=== PATIENT | male | born 1950 | race Caucasian/White ===

== ENCOUNTER → 2016-02-18 | Outpatient (CLI) | payer OTHER ==
[2016-02-18 18:11] LABS: MEAN CORPUSCULAR HEMOGLOBIN 32.3 pg (27.0-33.0); MEAN CORPUSCULAR HGB CONC 34.6 g/dl (32.0-36.5); MEAN CORPUSCULAR VOLUME 93.2 fl (80.0-96.0); WHITE BLOOD COUNT 8.2 K/mm3 (4.0-10.0)
[2016-02-18 18:20] LABS: ANION GAP 10 MEQ/L (8-16); BLOOD UREA NITROGEN 21 MG/DL (7-18); CARBON DIOXIDE LEVEL 28 MEQ/L (21-32); CHLORIDE LEVEL 98 MEQ/L (98-107); GLOMERULAR FILTRATION RATE 54.3 (>49); GLUCOSE, FASTING 328 MG/DL (80-110); POTASSIUM SERUM 4.2 MEQ/L (3.5-5.1); SODIUM LEVEL 136 MEQ/L (136-145)
== END | disposition home or self-care (01) ==
LOC: M LAB 16:23
PROVIDERS: ATTEND Internal Medicine Cardiovascular Disease
DX: R06.02 Shortness of breath (principal); R94.31 Abnormal electrocardiogram [ECG] [EKG]

== ENCOUNTER → 2021-09-10 | Outpatient (REF) | payer MEDICARE, BC, OTHER | LOC: M SMT 09:56 | PROVIDERS: ATTEND Urology | DX: R97.20 Elevated prostate specific antigen [PSA] (principal) ==

== ENCOUNTER 2024-04-26 13:19 | Day surgery (SDC) | payer MEDICARE, BC ==
[~2024-04-26] VITALS: Ht 180.3 cm; Wt 112.9 kg
[~2024-04-26 13:19] MED LIST: ADVA1AER8 INH; AMLO1TAB25 PO; ELIQ5TAB PO; FINA5TAB2 PO; LISI30TA4 PO; METF500T13 PO; ROSU10TA61 PO; SEMA2PEN; SERT25TA21 PO; TOPR100T PO; ZOLO25TA PO
[2024-04-26] MEDS ORDERED: GLUCAGON INJ 1MG VIAL SC PRN (14:10)
[2024-04-26] MEDS ORDERED: DEXTROSE 50% 50ML SYRINGE IV PRN (14:10)
[2024-04-26] MEDS ORDERED: GLUCOSE 4 GM CHEW PO PRN (14:10)
[2024-04-26] MEDS ORDERED: LR 1,000 ML IV SCH (14:10)
[2024-04-26] MEDS: INSULIN LISPRO (NovoLOG) PER UNIT SC PRN (14:12)
[2024-04-26] MEDS ORDERED: propofoL 200 MG/20 ML VIAL As Ordered ONE (14:19)
[2024-04-26] MEDS ORDERED: MIDAZOLAM INJ 2MG/2ML VIAL As Ordered ONE (14:19)
[2024-04-26] MEDS ORDERED: LIDOCAINE 2% 100MG/5ML SDV (FOR ANES.) As Ordered ONE (14:19)
[2024-04-26] MEDS ORDERED: KETOROLAC 30 MG/ML 1ML VIAL As Ordered ONE (14:19)
[2024-04-26] MEDS ORDERED: ONDANSETRON 4MG 2ML VIAL As Ordered ONE (14:19)
[2024-04-26] MEDS ORDERED: fentaNYL 100 MCG/2 ML INJECTION As Ordered ONE (14:20)
[2024-04-26] MEDS ORDERED: ROCURONIUM BROMIDE 50MG/5ML VIAL As Ordered ONE (14:29)
[2024-04-26] MEDS ORDERED: NORCO, ANEXSIA 5/325MG TABLET (HYDROcodone/ACETAMINOPHEN) PO PRN (14:35)
[2024-04-26] MEDS ORDERED: METOCLOPRAMIDE INJ 10MG/2ML VIAL IV PRN (14:35)
[2024-04-26] MEDS: ISOVUE-300 61% 100ML VIAL As Ordered ONE (14:38)
[2024-04-26] MEDS: ceFAZolin SOD 2 GM IV ONCE IV ONE (14:58)
[2024-04-26] MEDS ORDERED: SUGAMMADEX SODIUM 500 MG/5 ML VIAL (BRIDION) As Ordered ONE (15:08)
[2024-04-26] MEDS ORDERED: ACETAMINOPHEN 1000MG/100ML IV BAG As Ordered ONE (15:24)
[2024-04-26] MEDS ORDERED: oxyCODONE 5MG TAB PO PRN (15:30)
[2024-04-26] MEDS ORDERED: ONDANSETRON 4MG 2ML VIAL IV PRN (15:30)
[2024-04-26] MEDS ORDERED: fentaNYL 100 MCG/2 ML INJECTION IV PRN (15:30)
[2024-04-26] MEDS ORDERED: MACR100C43 PO (15:38)
[2024-04-26] MEDS ORDERED: PYRI1TAB5 PO (15:38)
[2024-04-26 16:44] VITALS: BP 129/78; TEMP 97.7; O2SAT 96
== END 2024-04-26 16:46 | disposition home or self-care (01) ==
LOC: M SDC 13:19
PROVIDERS: ATTEND Urology
DX: C67.9 Malignant neoplasm of bladder, unspecified (principal); N40.0 Benign prostatic hyperplasia without lower urinary tract symptoms; I48.91 Unspecified atrial fibrillation; G47.30 Sleep apnea, unspecified; Z87.891 Personal history of nicotine dependence; Z91.013 Allergy to seafood; Z79.899 Other long term (current) drug therapy
CPT/HCPCS: 52234; 52317; 82365; 88305; J0131; J0690; J1100; J1885; J2250; J2405; J3010

== ENCOUNTER 2024-10-21 07:32 | Day surgery (SDC) | payer MEDICARE, BC ==
[~2024-10-21] VITALS: Ht 180.3 cm; Wt 114.3 kg
[~2024-10-21 07:32] MED LIST changes: +MACR100C43 PO; +PYRI1TAB5 PO
[2024-10-21] MEDS ORDERED: ACETAMINOPHEN 1000MG/100ML IV BAG As Ordered ONE (08:10)
[2024-10-21] MEDS ORDERED: GLYCOPYRROLATE INJ 0.2 MG/ML 2 ML VIAL As Ordered ONE (08:10)
[2024-10-21] MEDS ORDERED: ONDANSETRON 4MG 2ML VIAL As Ordered ONE (08:10)
[2024-10-21] MEDS ORDERED: LIDOCAINE 2% 100 MG/5 ML SDV (FOR ANES.) As Ordered ONE (08:10)
[2024-10-21] MEDS ORDERED: dexAMETHasone 4 MG/ML 1 ML VIAL As Ordered ONE (08:10)
[2024-10-21] MEDS ORDERED: MIDAZOLAM INJ 2 MG/2 ML VIAL As Ordered ONE (08:11)
[2024-10-21] MEDS ORDERED: LR 1,000 ML IV SCH ×2 (08:15→09:45)
[2024-10-21] MEDS: ceFAZolin SOD 2 GM IV ONCE IV ONE (09:20)
[2024-10-21] MEDS: MITOMYCIN 40MG IN 40ML SWFI SYRINGE INTRAVESIC ONE (09:35)
[2024-10-21] MEDS ORDERED: MEPERIDINE 25 MG/ML 1 ML VIAL IV PRN (09:45)
[2024-10-21] MEDS ORDERED: ONDANSETRON 4MG 2ML VIAL IV PRN (09:45)
[2024-10-21] MEDS ORDERED: OXYB5TAB14 PO (09:49)
[2024-10-21 10:30] VITALS: BP 113/68; O2SAT 94
== END 2024-10-21 10:55 | disposition home or self-care (01) ==
LOC: M SDC 07:32
PROVIDERS: ATTEND Urology
DX: C67.8 Malignant neoplasm of overlapping sites of bladder (principal); E11.9 Type 2 diabetes mellitus without complications; N40.0 Benign prostatic hyperplasia without lower urinary tract symptoms; I10 Essential (primary) hypertension; E78.00 Pure hypercholesterolemia, unspecified; G47.30 Sleep apnea, unspecified; Z79.899 Other long term (current) drug therapy; Z79.01 Long term (current) use of anticoagulants; Z79.85 Long-term (current) use of injectable non-insulin antidiabetic drugs; F41.9 Anxiety disorder, unspecified; Z87.891 Personal history of nicotine dependence; Z91.013 Allergy to seafood
CPT/HCPCS: 52204; 88305; J0131; J0690; J1100; J1596; J2250; J2405; J3010; J9280

== ENCOUNTER → 2024-11-04 | Outpatient (REF) | payer MEDICARE, BC ==
[~2024-11-04] MED LIST changes: +OXYB5TAB14 PO
[2024-11-04 15:58] LABS: APPEARANCE, URINE HAZY (CLEAR); BACTERIA, URINE AUTO NEGATIVE (NEGATIVE); BILIRUBIN, URINE AUTO NEGATIVE (NEGATIVE); BLOOD, URINE BLOOD 2+ (NEGATIVE); CALCIUM OXALATE CRYSTALS MODERATE; GLUCOSE, URINE (UA) AUTO 3+ mg/dL (NEGATIVE); KETONE, URINE AUTO NEGATIVE (NEGATIVE); LEUKOCYTE ESTERASE, URINE AUTO TRACE (NEGATIVE); MUCUS, URINE SMALL (NEGATIVE); NITRITE, URINE AUTO NEGATIVE (NEGATIVE); PROTEIN, URINE AUTO 1+ mg/dL (NEGATIVE); RBC, URINE AUTO 19 /HPF (0-3); SPECIFIC GRAVITY URINE AUTO 1.009 (1.002-1.035); SQUAMOUS EPITHELIAL CELL UR AU 0 /HPF (0-6); UROBILINOGEN, URINE AUTO 0.2 mg/dL (0.0-2.0); WBC, URINE AUTO 9 /HPF (0-3)
== END ==
LOC: M SMT 15:01
PROVIDERS: ATTEND Physician Assistant
DX: R39.9 Unspecified symptoms and signs involving the genitourinary system (principal)